=== PATIENT | female | born 1970 | race African-American/Black ===

== ENCOUNTER → 2016-08-17 | Outpatient (CLI) | payer BC ==
[2016-08-22 20:31] LABS: ANA SCREEN Negative (Negative)
== END | disposition home or self-care (01) ==
LOC: CLAB 16:08
PROVIDERS: Specialist
DX: Z01.812 Encounter for preprocedural laboratory examination (principal); T84.84XA Pain due to internal orthopedic prosthetic devices, implants and grafts, initial encounter; Z96.611 Presence of right artificial shoulder joint
CPT/HCPCS: 36415; 85652; 86038; 86039; 86140; 86430